=== PATIENT | male | born 1985 | race Caucasian/White ===

== ENCOUNTER 2019-04-29 20:55 | Emergency (ER) | payer BC, OTHER ==
[2019-04-29] MEDS ORDERED: FENTANYL CITR 100 MCG/2 ML ONE (21:32)
[2019-04-29] MEDS ORDERED: NA CHLORIDE 0.9% 1,000 ML ONE ×2 (21:32→23:41)
[2019-04-29 22:14] LABS: Absolute Lymphocytes (CBC) 1.7 K/uL (0.7-4.9); Basophils % 0.3 % (0-1.3); Hematocrit 44.2 % (39.6-49.0); Lymphocytes % 12.9 % (15.3-44.8); MPV 7.5 fL (7.6-11.3); RBC Red Blood Cell Count 4.99 M/uL (4.33-5.43)
[2019-04-29] MEDS ORDERED: CEFTRIAXONE/SWI 1gm 1 GM/10 ML SYR ONE (22:14)
[2019-04-29 22:20] LABS: Potassium 4.2 mmol/L (3.5-5.1)
[2019-04-29 23:16] LABS: Urine Bacteria <20 /HPF (NONE SEEN); Urine Culture Reflex Order NOT NEEDED
[2019-04-29 23:23] LABS: Urine Blood 3+ (NEG); Urine Glucose NEGATIVE (NEG); Urine Protein 3+ (NEG); Urine Specific Gravity 1.025 (1.005-1.030); Urine pH 5.5 (5.0-7.0)
--- NOTE | 2019-04-30 00:27 | EDPHYS ---
Physician Documentation [facility] Name: Wilian Martinez Age: 33 yrs Sex: Male : 1985 Arrival Date: 04/29/2019 Time: 20:59 Bed 23 Private MD: ED Physician Juancarlos Goodwin HPI: 04/29 22:03 This 33 yrs old Male presents to ER via Ambulatory with complaints of Low snw Back Pain, Blood In Urine. 22:03 The patient presents with pain that is acute, with no known mechanism of injury. The snw symptoms are located in the low back. The pain does not radiate. The problem was sustained hematuria, dysuria, . Onset: The symptoms/episode began/occurred gradually, and became persistent. Associated signs and symptoms: Pertinent positives: abdominal pain, dysuria, fever, nausea. Severity of symptoms: At their worst the symptoms were moderate, severe. The patient has experienced similar episodes in the past. The patient has been recently seen by a physician: 1 month(s) ago, with different complaint(s). pt with recurrent illness over past month, concerned for mono. Historical: - Allergies: 21:07 No Known Allergies; aj1 - Home Meds: 21:07 None [Active]; aj1 - PMHx: 21:07 Kidney stones; aj1 - PSHx: 21:07 Hernia repair; Lithotripsy; aj1 - Immunization history:: Flu vaccine is not up to date. - Social history:: Smoking status: Patient/guardian denies using tobacco. - Ebola Screening: : Patient denies travel to an Ebola-affected area in the 21 days before illness onset. ROS: 22:01 Eyes: Negative for injury, pain, redness, and discharge, ENT: Negative for injury, snw pain, and discharge, Neck: Negative for injury, pain, and swelling, Cardiovascular: Negative for chest pain, palpitations, and edema, Respiratory: Negative for shortness of breath, cough, wheezing, and pleuritic chest pain. 22:01 MS/Extremity: Negative for injury and deformity, Skin: Negative for injury, rash, and discoloration, Neuro: Negative for headache, weakness, numbness, tingling, and seizure. 22:01 Constitutional: Positive for body aches, fatigue, fever, malaise. 22:01 Abdomen/GI: Positive for abdominal pain, nausea. 22:01 Back: Positive for pain at rest. 22:01 : Positive for urinary symptoms, small amounts, hematuria, burning with urination, difficulty urinating. Exam: 22:01 Constitutional: This is a well developed, well nourished patient who is awake, alert, snw and in no acute distress. Head/Face: Normocephalic, atraumatic. Eyes: Pupils equal round and reactive to light, extra-ocular motions intact. Lids and lashes normal. Conjunctiva and sclera are non-icteric and not injected. Cornea within normal limits. Periorbital areas with no swelling, redness, or edema. ENT: Nares patent. No nasal discharge, no septal abnormalities noted. Tympanic membranes are normal and external auditory canals are clear. Oropharynx with no redness, swelling, or masses, exudates, or evidence of obstruction, uvula midline. Mucous membranes moist. Neck: Trachea midline, no thyromegaly or masses palpated, and no cervical lymphadenopathy. Supple, full range of motion without nuchal rigidity, or vertebral point tenderness. No Meningismus. Chest/axilla: Normal chest wall appearance and motion. Nontender with no deformity. No lesions are appreciated. Cardiovascular: Regular rate and rhythm with a normal S1 and S2. No gallops, murmurs, or rubs. Normal PMI, no JVD. No pulse deficits. Respiratory: Lungs have equal breath sounds bilaterally, clear to auscultation and percussion. No rales, rhonchi or wheezes noted. No increased work of breathing, no retractions or nasal flaring. 22:01 Back: No spinal tenderness. No costovertebral tenderness. Full range of motion. Skin: Warm, dry with normal turgor. Normal color with no rashes, no lesions, and no evidence of cellulitis. MS/ Extremity: Pulses equal, no cyanosis. Neurovascular intact. Full, normal range of motion. Neuro: Awake and alert, GCS 15, oriented to person, place, time, and situation. Cranial nerves II-XII grossly intact. Motor strength 5/5 in all extremities. Sensory grossly intact. Cerebellar exam normal. Normal gait. Psych: Awake, alert, with orientation to person, place and time. Behavior, mood, and affect are within normal limits. 22:01 Abdomen/GI: Inspection: abdomen appears normal, Bowel sounds: hyperactive, in all quadrants, Palpation: moderate abdominal tenderness, in all quadrants. Vital Signs: 21:07 BP 129 / 80; Pulse 125; Resp 20; Temp 98.2; Pulse Ox 97% on R/A; Weight 102.06 kg (R); aj1 Height 5 ft. 11 in. (180.34 cm) (R); 22:20 BP 119 / 83; Pulse 88; Resp 19 S; Pulse Ox 99% on R/A; Pain 0/10; cc3 23:42 BP 121 / 81; Pulse 74; Resp 18 S; Pulse Ox 98% on R/A; Pain 0/10; cc3 04/30 00:54 BP 125 / 85; Pulse 76; Resp 15; Pulse Ox 98% on R/A; rv 04/29 21:07 Body Mass Index 31.38 (102.06 kg, 180.34 cm) aj1 MDM: 04/29 21:24 Patient medically screened. snw 04/30 00:26 Data reviewed: vital signs, nurses notes. Data interpreted: Pulse oximetry: on room air snw is 98 %. Interpretation: normal. Counseling: I had a detailed discussion with the patient and/or guardian regarding: the historical points, exam findings, and any diagnostic results supporting the discharge/admit diagnosis, lab results, the need for outpatient follow up, to return to the emergency department if symptoms worsen or persist or if there are any questions or concerns that arise at home. Response to treatment: the patient's symptoms have markedly improved after treatment. Special discussion: Based on the patient's Hx, exam, and Dx evaluation, there is no indication for emergent surgery or inpatient Tx. It is understood by the patient/guardian that if the Sx's persist or worsen they need to return immediately for re-evaluation. I have referred the patient to see his PCP for further evaluation of high blood pressure. Based on the history and exam findings, there is no indication for further emergent testing or inpatient evaluation. I discussed with the patient/guardian the need to see the primary care provider for further evaluation of the symptoms. 04/29 21:17 Order name: Urine Culture snw 04/29 21:17 Order name: Urine Microscopic Only; Complete Time: 23:18 snw 04/29 21:17 Order name: Basic Metabolic Panel; Complete Time: 22:20 snw 04/29 21:17 Order name: CBC with Diff; Complete Time: 22:26 snw 04/29 21:17 Order name: Blood Culture Adult (2) [facility] 04/29 21:27 Order name: Urine Dipstick--Ancillary (enter results); Complete Time: 23:23 ri 04/29 21:17 Order name: Urine Dipstick-Ancillary (obtain specimen); Complete Time: 22:19 snw 04/29 21:17 Order name: Labs collected and sent; Complete Time: 22:19 snw 04/29 21:30 Order name: [place] Screen Profile; Complete Time: 23:42 snw 04/29 21:30 Order name: TSH; Complete Time: 22:49 snw Administered Medications: 04/29 00:35 Drug: NS 0.9% 1000 ml Route: IV; Rate: 1 bolus; Site: right antecubital; cc3 04/30 00:54 Follow up: IV Status: Completed infusion; IV Intake: 1000ml rv 04/29 21:30 Drug: NS 0.9% 1000 ml Route: IV; Rate: 1 bolus; Site: right antecubital; cc3 22:30 Follow up: Response: No adverse reaction; IV Status: Completed infusion; IV Intake: cc3 1000ml 21:30 Drug: fentaNYL (PF) 25 mcg {Note: RASS 0.} Route: IVP; Site: right antecubital; cc3 22:00 Follow up: Response: No adverse reaction; Pain is decreased; RASS: Alert and Calm (0) cc3 22:10 Drug: Rocephin 1 grams Route: IV; Rate: calculated rate; Site: right antecubital; 3 22:13 Follow up: Response: No adverse reaction; IV Status: Completed infusion; IV Intake: [id number] Disposition: 04/30/19 00:26 Discharged to Home. Impression: Infectious mononucleosis, unspecified, Urinary tract infection, site not specified, Renal insufficiency. - Condition is Stable. - Discharge Instructions: Hypertension, Infectious Mononucleosis, Urinary Tract Infection, Adult, Dietary Guidelines to Help Prevent Kidney Stones, Rehydration, Adult. - Prescriptions for Cipro 500 mg Oral Tablet - take 1 tablet by ORAL route every 12 hours for 7 days; 14 tablet. promethazine 25 mg Oral Tablet - take 1 tablet by ORAL route every 6 hours As needed; 20 tablet. Ultram 50 mg Oral Tablet - take 1 tablet by ORAL route every 6 hours As needed; 12 tablet. - Work release form, Medication Reconciliation Form, Thank You Letter, Antibiotic Education, Prescription Opioid Use form. - Follow up: Private Physician; When: 2 - 3 days; Reason: Recheck today's complaints, Continuance of care, Re-evaluation by your physician. Follow up: Emergency Department; When: As needed; Reason: Worsening of condition. Addendum: 05/02/2019 07:41 Co-signature as Attending Physician, Juancarlos Goodwin MD I agree with the assessment and c henderson plan of care. Signatures: Dispatcher [employer] EDGianna Wilcox RN RN ajJuancarlos Barnes MD MD cha Therrien, Shelly, AREA DIRECTOR OF HOME HEALTH SALES-C AREA DIRECTOR OF HOME HEALTH SALES-Csnw Steven Robins RN RN rv Serina Gao cc3 Corrections: (The following items were deleted from the chart) 04/30 00:55 00:26 04/30/2019 00:26 Discharged to Home. Impression: Infectious mononucleosis, rv unspecified; Urinary tract infection, site not specified; Renal insufficiency. Condition is Stable. Discharge Instructions: Hypertension, Infectious Mononucleosis, Urinary Tract Infection, Adult, Dietary Guidelines to Help Prevent Kidney Stones, Rehydration, Adult. Prescriptions for Cipro 500 mg Oral Tablet - take 1 tablet by ORAL route every 12 hours for 7 days; 14 tablet, promethazine 25 mg Oral Tablet - take 1 tablet by ORAL route every 6 hours As needed; 20 tablet. and Forms are Work release form, Medication Reconciliation Form, Thank You Letter, Antibiotic Education, Prescription Opioid Use. Follow up: Private Physician; When: 2 - 3 days; Reason: Recheck today's complaints, Continuance of care, Re-evaluation by your physician. Follow up: Emergency Department; When: As needed; Reason: Worsening of condition. snw
--- NOTE | 2019-04-30 00:27 | ER ---
Nurse's Notes [facility] Name: Wilian Martinez Age: 33 yrs Sex: Male : 1985 Arrival Date: 04/29/2019 Time: 20:59 Bed 23 Private MD: Diagnosis: Infectious mononucleosis, unspecified;Urinary tract infection, site not specified;Renal insufficiency Presentation: 04/29 21:03 Presenting complaint: Patient states: "I believe i have a kidney infection. We had been aj1 on vacation and in that time I ran fevers, difficulty urinating and hurting, and today the pain has intensified and moved up higher". Transition of care: patient was not received from another setting of care. Onset of symptoms was 2018. Risk Assessment: Do you want to hurt yourself or someone else? Patient reports no desire to harm self or others. Initial Sepsis Screen: Does the patient meet any 2 criteria? HR > 90 bpm. No. Patient's initial sepsis screen is negative. Does the patient have a suspected source of infection? Yes: Dysuria/Frequency/Urgency/UTI. Care prior to arrival: None. 21:03 Method Of Arrival: Ambulatory [facility] 21:03 Acuity: ASHLIE 3 aj1 Triage Assessment: 21:07 General: Appears in no apparent distress. comfortable, Behavior is calm, cooperative, aj1 appropriate for age. Pain: Complains of pain in left mid back. Neuro: Level of Consciousness is awake, alert, obeys commands, Oriented to person, place, time, situation. Cardiovascular: Respiratory: Airway is patent Respiratory effort is even, unlabored, Respiratory pattern is regular, symmetrical. Historical: - Allergies: 21:07 No Known Allergies; aj1 - Home Meds: 21:07 None [Active]; aj1 - PMHx: 21:07 Kidney stones; aj1 - PSHx: 21:07 Hernia repair; Lithotripsy; aj1 - Immunization history:: Flu vaccine is not up to date. - Social history:: Smoking status: Patient/guardian denies using tobacco. - Ebola Screening: : Patient denies travel to an Ebola-affected area in the 21 days before illness onset. Screenin:21 Abuse screen: Denies threats or abuse. Denies injuries from another. Nutritional cc3 screening: No deficits noted. Tuberculosis screening: No symptoms or risk factors identified. Fall Risk Ambulatory Aid- None/Bed Rest/Nurse Assist (0 pts). Gait- Normal/Bed Rest/Wheelchair (0 pts) Mental Status- Oriented to own ability (0 pts). Assessment: 21:21 General: Appears in no apparent distress. uncomfortable, Behavior is calm, cooperative, cc3 appropriate for age. Pain: Complains of pain in back and left mid back Quality of pain is described as aching. Neuro: Level of Consciousness is awake, alert, obeys commands, Oriented to person, place, time, situation, Appropriate for age. Cardiovascular: Denies chest pain, Heart tones S1 S2 present Capillary refill < 3 seconds Patient's skin is warm and dry. Respiratory: Airway is patent Respiratory effort is even, unlabored, Respiratory pattern is regular, symmetrical, Breath sounds are clear bilaterally. GI: Abdomen is round non-distended, Bowel sounds present X 4 quads. : Reports blood in urine. EENT: No signs and/or symptoms were reported regarding the EENT system. Derm: Skin is intact, is healthy with good turgor, Skin is pink, warm \\T\\ dry. normal. Musculoskeletal: Circulation, motion, and sensation intact. Range of motion: intact in all extremities. 22:15 Reassessment: Patient vomited small amount of mucus after receiving Ceftriaxone, cc3 patient given ice chips and says he's okay now; MANAGER INCOME TAX Carolann informed. Patient denies pain at this time. Patient states feeling better. Patient states symptoms have improved. 23:30 Reassessment: Patient appears in no apparent distress at this time. Patient and/or cc3 family updated on plan of care and expected duration. Pain level reassessed. Patient is alert, oriented x 3, equal unlabored respirations, skin warm/dry/pink. Patient denies pain at this time. Patient states feeling better. Patient states symptoms have improved. Vital Signs: 21:07 BP 129 / 80; Pulse 125; Resp 20; Temp 98.2; Pulse Ox 97% on R/A; Weight 102.06 kg (R); aj1 Height 5 ft. 11 in. (180.34 cm) (R); 22:20 BP 119 / 83; Pulse 88; Resp 19 S; Pulse Ox 99% on R/A; Pain 0/10; cc3 23:42 BP 121 / 81; Pulse 74; Resp 18 S; Pulse Ox 98% on R/A; Pain 0/10; cc3 04/30 00:54 BP 125 / 85; Pulse 76; Resp 15; Pulse Ox 98% on R/A; rv 04/29 21:07 Body Mass Index 31.38 (102.06 kg, 180.34 cm) aj1 ED Course: 04/29 20:59 Patient arrived in ED. ds1 21:04 Triage completed. aj1 21:07 Arm band placed on Patient placed in an exam room, Patient notified of wait time. aj1 21:16 Carolann Finley FNP-C is PHCP. snw 21:16 Juancarlos Goodwin MD is Attending Physician. snw 21:21 Serina Gao is Primary Nurse. cc3 21:21 Patient has correct armband on for positive identification. Placed in gown. Bed in low cc3 position. Call light in reach. Side rails up X 1. Pulse ox on. NIBP on. 23:43 Report given to FARZANA Justice. cc3 04/30 00:53 Steven Robins RN is Primary Nurse. rv 00:54 No provider procedures requiring assistance completed. IV discontinued, intact, rv bleeding controlled, No redness/swelling at site. Pressure dressing applied. Administered Medications: 04/29 00:35 Drug: NS 0.9% 1000 ml Route: IV; Rate: 1 bolus; Site: right antecubital; cc3 04/30 00:54 Follow up: IV Status: Completed infusion; IV Intake: 1000ml rv 04/29 21:30 Drug: NS 0.9% 1000 ml Route: IV; Rate: 1 bolus; Site: right antecubital; cc3 22:30 Follow up: Response: No adverse reaction; IV Status: Completed infusion; IV Intake: cc3 1000ml 21:30 Drug: fentaNYL (PF) 25 mcg {Note: RASS 0.} Route: IVP; Site: right antecubital; cc3 22:00 Follow up: Response: No adverse reaction; Pain is decreased; RASS: Alert and Calm (0) cc3 22:10 Drug: Rocephin 1 grams Route: IV; Rate: calculated rate; Site: right antecubital; cc3 22:13 Follow up: Response: No adverse reaction; IV Status: Completed infusion; IV Intake: [id number] Intake: 22:13 IV: 10ml; Total: 10ml. cc3 22:30 IV: 1000ml; Total: 1010ml. cc3 04/30 00:54 IV: 1000ml; Total: 2010ml. rv Outcome: 00:26 Discharge ordered by . snw 00:55 Discharged to home ambulatory, with family. rv 00:55 Condition: improved 00:55 Discharge instructions given to patient, Instructed on discharge instructions, follow up and referral plans. medication usage, Demonstrated understanding of instructions, follow-up care, medications, Prescriptions given X 3. 00:55 Patient left the ED. rv Addendum: 05/03/2019 13:09 Addendum: Culture Results: Positive urine culture. No further action required. Bacteria a a5 sensitive to prescribed antibiotic. Signatures: Gianna Singer, RN RN aj1 Carolann Finley, EMPLOYEE BENEFITS COORDINATOR-C EMPLOYEE BENEFITS COORDINATOR-Csnw Koki Bhakta ds1 Emily Ryder RN RN aa5 Steven Robins RN RN rv Serina Gao cc3
[2019-04-30 01:39] VITALS: TEMP 98.2
[2019-04-30 01:42] VITALS: O2SAT 98
[2019-04-30 01:44] VITALS: BP 125/85
== END 2019-04-30 00:55 | disposition home or self-care (01) ==
LOC: ER 20:55
DX: N39.0 Urinary tract infection, site not specified (principal); B27.90 Infectious mononucleosis, unspecified without complication; N28.9 Disorder of kidney and ureter, unspecified; Z87.442 Personal history of urinary calculi
CPT/HCPCS: 96361; 87040 ×2; 87088; 85025; 87086; 80048; 36415; 86308; 84443; 87077; 87186; 96375; 96374; 99283; J3010; J0696; J7030 ×2; 81003; 81015